=== PATIENT | female | born 1990 | race Caucasian/White ===

== ENCOUNTER 2021-08-10 14:16 | Emergency (ER) | payer OTHER ==
[~2021-08-10 14:16] MED LIST: BIRTH CONTROL; ELAVIL25 MG PO
[2021-08-10 15:35] LABS: BASOPHIL 0.4 % (0-2); EOSINOPHIL 0.5 % (0-5); HCT 44.6 % (37.0-47.0); HGB 14.5 g/dl (12.5-16.0); LYMPHOCYTE 20.9 % (15-48); MCHC 32.5 g/dL (32.0-36.0); MCV 82.9 fL (78.0-100.0); MONOCYTE 5.2 % (0-12); MPV 10.8 fL (6.0-9.5); NEUTROPHIL 72.7 % (41-80); NRBC 0; PLT 270 K/uL (150-400); RBC 5.38 M/uL (4.20-5.40); RDW 14.6 % (11.5-14.0); WBC 10.2 K/uL (4.0-10.5)
[2021-08-10 15:52] LABS: BUN/CREAT RATIO (CALC) 18.8 RATIO; CREATININE 0.69 mg/dL (0.51-0.95); POTASSIUM 3.8 mmol/L (3.5-5.1)
[2021-08-10 16:07] LABS: BILIRUBIN NEGATIVE (NEGATIVE); BLOOD 3+ Ery/uL (NEGATIVE); CLARITY CLEAR (CLEAR); COLOR YELLOW (YELLOW); GLUCOSE (U) NORMAL (NORMAL); LEUKOCYTES NEGATIVE Leu/uL (NEGATIVE); NITRITE NEGATIVE (NEGATIVE); PROTEIN 1+ mg/dL (NEGATIVE); SPECIFIC GRAVITY >=1.030 (1.001-1.030); UROBILINOGEN 0.2 mg/dL (0.2-1.0)
[2021-08-10 16:14] LABS: BACTERIA 1+; MUCOUS LARGE; URINARY RBC TNTC; URINARY WBC RARE
[2021-08-10] MEDS ORDERED: BACTRIM DS TAB1 EACH PO (17:59)
[2021-08-10] MEDS ORDERED: ONDANSETRON HCL4 MG PO (17:59)
== END 2021-08-10 18:42 | disposition home or self-care (01) ==
LOC: FER 14:16
PROVIDERS: Nurse Practitioner Family
DX: N39.0 Urinary tract infection, site not specified (principal); R10.84 Generalized abdominal pain; Z88.0 Allergy status to penicillin
CPT/HCPCS: 36415; 80048; 81001; 85025; 87088; J1170; J1885; J2405; J7030; Q9967